=== PATIENT | female | born 1955 | race Asian ===

== ENCOUNTER 2018-02-14 19:55 | Emergency (ER) | payer OTHER ==
[~2018-02-14] VITALS: Ht 162.6 cm; Wt 79.4 kg
[2018-02-14] MEDS ORDERED: HYDR25CA25 PO (20:19)
[2018-02-14] MEDS ORDERED: ASA LOW DOSE81 MG PO (20:20)
[2018-02-14] MEDS ORDERED: CARV12.5 PO (20:20)
[2018-02-14] MEDS ORDERED: DIVALPROEX500 M1 PO (20:22)
[2018-02-14] MEDS ORDERED: METFORMIN ER1000 MG PO (20:23)
[2018-02-14] MEDS ORDERED: NEURONTIN 100M100 MG PO (20:23)
[2018-02-14] MEDS ORDERED: LITHIUM CARB300 MG PO (20:23)
[2018-02-14] MEDS ORDERED: PROTONIX20 MG PO (20:24)
[2018-02-14] MEDS ORDERED: POTASSIUM25 MEQ PO (20:25)
[2018-02-14] MEDS ORDERED: RISPERDAL M PO (20:26)
[2018-02-14] MEDS ORDERED: TOLT4CAP2 PO (20:27)
[2018-02-14 20:55] LABS: PLATELET COUNT 305 K/uL (152-353)
[2018-02-14 21:32] VITALS: BP 158/78; TEMP 97.7
[2018-02-15] MEDS ORDERED: IMODIUM A-D2 MG PO (00:55)
[2018-02-15] MEDS ORDERED: [UNRECOGNIZED DRUG - OTHER] PO (01:01)
[2018-02-15] MEDS ORDERED: DIVA500T2 PO (01:29)
[2018-02-15] MEDS ORDERED: HYDR25CA25 PO (01:32)
[2018-02-15] MEDS ORDERED: LITHIUM CARB300 MG PO (01:33)
[2018-02-15] MEDS ORDERED: RISPERDAL4 MG PO (01:34)
[2018-02-15] MEDS ORDERED: ACTOS15 MG PO (01:36)
[2018-02-15] MEDS ORDERED: TOLT4CAP2 PO (01:36)
[2018-02-15] MEDS ORDERED: NEURONTIN 100M100 MG PO (01:37)
[2018-03-05] MEDS ORDERED: ASEN5SUB2 SL (09:47)
[2018-03-05] MEDS ORDERED: DIVALPROEX500 MG PO (09:47)
[2018-03-05] MEDS ORDERED: HALO5INJ3 IM (09:48)
[2018-03-05] MEDS ORDERED: HALO5TAB10 PO (09:48)
[2018-03-05] MEDS ORDERED: LITH300C3 PO (09:49)
[2018-03-05] MEDS ORDERED: ZIPR20IN IM (09:50)
[2018-03-05] MEDS ORDERED: TRAZ50TA36 PO (09:50)
[2018-03-05] MEDS ORDERED: LORA2INJ21 IM (09:51)
[2018-03-05] MEDS ORDERED: INSUINJ20 SC (09:52)
[2018-03-05] MEDS ORDERED: RISP1TAB PO (09:53)
[2018-03-12] MEDS ORDERED: FINGERSTIX (17:34)
== END 2018-02-14 21:32 | disposition other institution (70) ==
LOC: ED 19:55
PROVIDERS: Internal Medicine
DX: F22 Delusional disorders (principal); F31.89 Other bipolar disorder; E11.9 Type 2 diabetes mellitus without complications; I10 Essential (primary) hypertension; Z04.6 Encounter for general psychiatric examination, requested by authority
CPT/HCPCS: 36415; 80053; 81000; 85027; 93005; 96372; 99285; J1815

== ENCOUNTER 2018-03-30 04:05 | Emergency (ER) | payer OTHER ==
[~2018-03-30] VITALS: Ht 165.1 cm; Wt 94.8 kg
[~2018-03-30 04:05] MED LIST: ACTOS15 MG PO; ASA LOW DOSE81 MG PO; ASEN5SUB2 SL; CARV12.5 PO; DIVA500T2 PO; DIVALPROEX500 M1 PO; DIVALPROEX500 MG PO; FINGERSTIX; HALO5INJ3 IM; HALO5TAB10 PO; HYDR25CA25 PO; IMODIUM A-D2 MG PO; INSUINJ20 SC; LITH300C3 PO; LITHIUM CARB300 MG PO; LORA2INJ21 IM; METFORMIN ER1000 MG PO; NEURONTIN 100M100 MG PO; POTASSIUM25 MEQ PO; PROTONIX20 MG PO; RISP1TAB PO; RISPERDAL M PO; RISPERDAL4 MG PO; TOLT4CAP2 PO; TRAZ50TA36 PO; ZIPR20IN IM; [UNRECOGNIZED DRUG - OTHER] PO
[2018-03-30 04:46] LABS: PLATELET COUNT 264 K/uL (152-353)
[2018-03-30 04:56] LABS: POTASSIUM 4.2 mmol/L (3.6-5.2); SODIUM 137 mmol/L (136-145)
[2018-03-30 05:06] LABS: PARTIAL THROMBOPLASTIN TIME 22.7 SECONDS (24.5-33.6)
[2018-03-30 06:06] VITALS: BP 131/50; TEMP 98.5
== END 2018-03-30 06:25 | disposition other institution (70) ==
LOC: ED 04:05
PROVIDERS: Family Medicine
DX: R41.82 Altered mental status, unspecified (principal); T50.995A Adverse effect of other drugs, medicaments and biological substances, initial encounter; Y92.89 Other specified places as the place of occurrence of the external cause
CPT/HCPCS: 36415; 80053; 82550; 84484; 85027; 85610; 85730; 93005; 99283

== ENCOUNTER 2020-03-11 21:32 | Emergency (ER) | payer OTHER ==
[~2020-03-11] VITALS: Ht 162.6 cm; Wt 97.5 kg
[2020-03-11 21:32] VITALS: BP 150/85; TEMP 98.5
[~2020-03-11 21:32] MED LIST changes: +AMBIEN5 MG PO; +ASCO500T18 PO; +CLARITIN10 M1 PO; +DIVA250T PO; +DOCU100C10 PO; +FOLI1TAB26 PO; +FURO20TA67 PO; +GABA100C2 PO; +GABA300C2 PO; +LITHIUM CARB300 M1 PO; +LORA1TAB17 PO; +MAGN400T4 PO; +MAGNSUS68 PO; +MELATONIN3 M3 PO; +METFORMIN HYDR850 MG PO; +MOBIC7.5 M1 PO; +MULTTAB52 PO; +NEOMOIN TOP; +NITROGLYCERIN0.4 MG SL; +ONDA4TAB3 PO; +PIOG30TA PO; +POTASSIUM CHLO20 ME1 PO; +QUET100T2 PO; +QUET25TA2 PO; +QUET300T PO; +SEROQUEL25 MG PO; +SILTUSSIN DM PO; +TYLENOL325 MG PO; +VITAMIN D31000 UNI4 PO; +ZANAFLEX2 MG PO; +ZINC220C4 PO
[2020-03-11 22:09] LABS: PLATELET COUNT 310 K/uL (152-353)
[2020-03-11 22:18] LABS: POTASSIUM 3.9 mmol/L (3.6-5.2)
[2020-03-12] MEDS ORDERED: PROTEIN SUPPLEMENT PO
[2020-03-12] MEDS ORDERED: CYCLOBENZAPRINE5 MG PO (00:02)
[2020-03-12] MEDS ORDERED: JARDIANCE25 MG PO (00:04)
[2020-03-12] MEDS ORDERED: ASCO500T18 PO (00:04)
[2020-03-12] MEDS ORDERED: ZINC-220220 MG PO (00:05)
[2020-03-12] MEDS ORDERED: MED PASS PO (00:07)
[2020-03-12] MEDS ORDERED: GLUCOSE GEL PO (00:13)
[2020-03-12] MEDS ORDERED: DEXTROSE IV (00:14)
[2020-03-12] MEDS ORDERED: FURO20TA67 PO (00:15)
[2020-03-12] MEDS ORDERED: SEROQUEL50 MG PO (00:16)
== END 2020-03-11 22:40 | disposition still patient (30) ==
LOC: ED 21:32
PROVIDERS: Hospitalist
DX: F03.91 Unspecified dementia, unspecified severity, with behavioral disturbance (principal); F25.8 Other schizoaffective disorders; Z11.59 Encounter for screening for other viral diseases; Z04.6 Encounter for general psychiatric examination, requested by authority
CPT/HCPCS: 36415; 80053; 80164; 85027; 87635; 93005; 99283; U0003

== ENCOUNTER 2022-09-07 22:50 | Emergency (ER) | payer OTHER ==
[~2022-09-07] VITALS: Ht 162.6 cm; Wt 84.4 kg
[~2022-09-07 22:50] MED LIST changes: -ASA LOW DOSE81 MG PO; +ASPI81TA4 PO; +CYCLOBENZAPRINE5 MG PO; +DEXTROSE IV; +GLUCOSE GEL PO; +JARDIANCE25 MG PO; +MED PASS PO; +METF500T PO; -METFORMIN HYDR850 MG PO; +PROTEIN SUPPLEMENT PO; +RISP0.25 PO; +SEROQUEL50 MG PO; +ZINC-220220 MG PO
[2022-09-07 22:56] VITALS: TEMP 98.1
[2022-09-07 23:30] LABS: PLATELET COUNT 435 K/uL (152-353)
[2022-09-07 23:38] LABS: POTASSIUM 4.2 mmol/L (3.6-5.2)
[2022-09-08 00:12] VITALS: BP 155/77
[2022-09-08] MEDS ORDERED: DIVALPROEX500 M1 PO (07:21)
[2022-09-08] MEDS ORDERED: GEMTESA75 MG PO (07:22)
[2022-09-08] MEDS ORDERED: LITHIUM CARB300 M1 PO (07:24)
[2022-09-08] MEDS ORDERED: GABA100C2 PO (07:25)
[2022-09-08] MEDS ORDERED: DAILY VITAMIN PO (07:25)
[2022-09-08] MEDS ORDERED: RISPERDAL4 MG PO (07:26)
[2022-09-08] MEDS ORDERED: TRAZ50TA36 PO (07:27)
[2022-09-08] MEDS ORDERED: PRO-STAT PO (07:29)
[2022-09-08] MEDS ORDERED: NOVOLIN R100 UNIT/2 SC (07:31)
[2022-09-08] MEDS ORDERED: LORA0.5T17 PO (07:32)
== END 2022-09-08 00:12 | disposition still patient (30) ==
LOC: ED 22:50
PROVIDERS: Emergency Medicine
DX: F25.8 Other schizoaffective disorders (principal); F22 Delusional disorders; R45.1 Restlessness and agitation; E11.65 Type 2 diabetes mellitus with hyperglycemia; Z79.4 Long term (current) use of insulin; Z11.52 Encounter for screening for COVID-19; Z04.6 Encounter for general psychiatric examination, requested by authority
CPT/HCPCS: 36415; 80053; 81002; 85027; 87635; 93005; 99283; U0003